=== PATIENT | female | born 2000 | race Caucasian/White ===

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

== ENCOUNTER 2020-05-29 19:18 | Emergency (ER) | payer OTHER ==
[~2020-05-29] VITALS: Ht 162.6 cm; Wt 68.9 kg
[2020-05-29 19:23] VITALS: Ht 162.6 cm; Wt 68.9 kg
[2020-05-29 21:50] VITALS: BP 106/64
== END 2020-05-29 21:48 | disposition home or self-care (01) ==
LOC: ED 19:18
DX: F12.129 Cannabis abuse with intoxication, unspecified (principal); J45.909 Unspecified asthma, uncomplicated; Z88.0 Allergy status to penicillin